=== PATIENT | female | born 1970 | race Caucasian/White ===

== ENCOUNTER 2016-12-10 17:16 | Emergency (ER) | payer OTHER, SELFPAY ==
[2016-12-10 17:35] VITALS: O2SAT 98
--- NOTE | 2016-12-10 17:57 | RAD ---
EXAM: Chest,2 Views CLINICAL INDICATION: 46-year-old female with cough. TECHNIQUE: Two-view, PA and lateral projections of the chest were obtained. COMPARISON: 09/15/2010. FINDINGS: Unremarkable cardiac and mediastinal silhouette. Heart size is normal. Lungs are clear without focal opacity, pneumothorax or pleural effusions. The visualized bones are within normal limits. IMPRESSION: No acute cardiopulmonary abnormalities. Electronically signed by: Tania Rowland MD 12/10/2016 5:56 PM HOME HEALTH CLINICAL SUPERVISOR
--- NOTE | 2016-12-10 18:57 | ED.PDOC ---
History of Present Illness - General Chief Complaint: General Stated Complaint: Increased difficulty breathing x several weeks Time Seen by Provider: 12/10/16 17:30 Source: patient, RN notes reviewed, Vital Signs reviewed Exam Limitations: no limitations - History of Present Illness Initial Comments: Patient is a 46 y/o female with a history of asthma that has had a cough for about a month. She has been increasing her use of her inhaler, however over the past two days, it has not been working well at all. She has a continuous cough (although I have not heard her cough yet), and shortness of breath. She has had chills and myalgias. Timing/Duration: getting worse, other - 1 month Severity: moderate, severe Improving Factors: nothing Worsening Factors: movement Associated Symptoms: cough, malaise, nausea/vomiting, shortness of breath Allergies/Adverse Reactions: Allergies Penicillins Allergy (Verified 06/09/15 08:13) Home Medications: Ambulatory Orders Albuterol Sulfate [Proair Hfa] 2 puff INH Q6H PRN #1 12/10/16 Fluoxetine HCl [Prozac] 40 mg PO DAILY 12/10/16 Methylprednisolone [Medrol Dose Geovany] 4 mg PO DAILY #1 pack 12/10/16 Review of Systems - Review of Systems Constitutional: States: chills EENTM: States: ear pain, nose congestion, throat pain Respiratory: States: cough, short of breath Cardiology: States: no symptoms reported Gastrointestinal/Abdominal: States: nausea Genitourinary: States: no symptoms reported Musculoskeletal: States: muscle pain. Denies: joint pain Skin: States: no symptoms reported Neurological: States: headache, weakness. Denies: numbness Endocrine: States: no symptoms reported Hematologic/Lymphatic: States: no symptoms reported Past Medical History (General) - Patient Medical History Hx Seizures: No Hx Stroke: No Hx Dementia: No Hx Asthma: Yes Hx of COPD: No Hx Cardiac Disorders: No Hx Congestive Heart Failure: No Hx Pacemaker: No Hx Hypertension: Yes Hx Thyroid Disease: No Hx Diabetes: No Hx Gastroesophageal Reflux: No Hx Renal Disease: No Hx Cancer: No Hx of HIV: No Hx Hepatitis C: No Hx MRSA: No MRSA Source:: Wound - Vaccination History Hx Tetanus, Diphtheria Vaccination: Yes Hx Influenza Vaccination: No Hx Pneumococcal Vaccination: Yes Immunizations Up to Date: Yes - Social History Hx Tobacco Use: No Hx Chewing Tobacco Use: No Hx Alcohol Use: No Hx Substance Use: No Hx Substance Use Treatment: No Hx Depression: No Feels Threatened In Home Enviroment: No Feels Threatened In a Relationship: No Hx Physical Abuse: No Hx Emotional Abuse: No Hx Suspected Abuse: No - Female History Patient is a Female of Child Bearing Age (10 -59 yrs old): Yes Patient : No Family Medical History - Family History Mother Living Status: Hx Family;Other: Malini Gehrig's disease Father Living Status: Hx Family Cancer: Yes - Prostate Physical Exam - Physical Exam General Appearance: Alert, No apparent distress Eye Exam: bilateral normal Ears, Nose, Throat: hearing grossly normal, normal ENT inspection Neck: non-tender Respiratory: lungs clear, normal breath sounds, no respiratory distress, no accessory muscle use Cardiovascular/Chest: regular rate, rhythm, no edema, no gallop, no murmur Gastrointestinal/Abdominal: normal bowel sounds, soft, no organomegaly, tenderness - epigastric Extremity: normal range of motion, normal inspection Neurologic: alert, normal mood/affect, oriented x 3 Skin Exam: normal color, warm/dry Progress - Results/Orders Results/Orders: 12/10/16 17:30 Temperature 98.8 F Pulse Rate [L 73 Arm] Respiratory 18 Rate Blood Pressure 124/85 [L Arm] O2 Sat by Pulse 98 Oximetry 12/10/16 17:50 STREP A SCREEN CULTURE Stat Rapid strep - NEG Influenza A and B - NEG - EKG/XRAY/CT XRAY: chest - NML CT Ordered: No CT Interpretation Call Back: No Departure - Departure Clinical Impression: Asthma with acute exacerbation in adult Time of Disposition: 19:00 Disposition: Discharge to Home or Self Care Condition: Fair Departure Forms: ED Discharge - Pt. Copy, Patient Portal Self Enrollment Instructions: Tips for Controlling Your Asthma, DI for Asthma -- Adult, Asthma -- Adult Diet: resume usual diet Referrals: RADHA RONQUILLO [Primary Care Provider] - 1-2 Weeks Prescriptions: Methylprednisolone [Medrol Dose Geovany] 4 mg PO DAILY #1 pack Albuterol Sulfate [Proair Hfa] 2 puff INH Q6H PRN #1 PRN Reason: Difficulty Breathing Home Medications: Ambulatory Orders Albuterol Sulfate [Proair Hfa] 2 puff INH Q6H PRN #1 12/10/16 Fluoxetine HCl [Prozac] 40 mg PO DAILY 12/10/16 Methylprednisolone [Medrol Dose Geovany] 4 mg PO DAILY #1 pack 12/10/16
[2016-12-10] MEDS: methylPREDNISolone SODIUM SUC 125 MG/2 ML VIAL IM ONE (19:01)
[2016-12-10 19:54] VITALS: BP 121/74; TEMP 97.9
--- NOTE | 2016-12-22 00:14 | RAD ---
EXAM: Chest,2 Views CLINICAL INDICATION: 46-year-old female with cough. TECHNIQUE: Two-view, PA and lateral projections of the chest were obtained. COMPARISON: 09/15/2010. FINDINGS: Unremarkable cardiac and mediastinal silhouette. Heart size is normal. Lungs are clear without focal opacity, pneumothorax or pleural effusions. The visualized bones are within normal limits. IMPRESSION: No acute cardiopulmonary abnormalities. Electronically signed by: Tania Rowland MD 12/10/2016 5:56 PM DIRECT SERVICE PROFESSIONAL
== END 2016-12-10 19:30 | disposition home or self-care (01) ==
LOC: ER 17:16
DX: J45.901 Unspecified asthma with (acute) exacerbation (principal); I10 Essential (primary) hypertension; Z88.0 Allergy status to penicillin; Z79.899 Other long term (current) drug therapy

== ENCOUNTER → 2017-02-04 | Outpatient (CLI) | payer SELFPAY ==
--- NOTE | 2017-02-05 14:12 | RAD ---
EXAM DESCRIPTION: Knee,Left 2 or More Views CLINICAL HISTORY: 46 years, Female, PAIN IN LEFT KNEE COMPARISON: None TECHNIQUE: Three views of the left knee FINDINGS: The knee is normally aligned and mineralized. No fracture or deformity or destructive process is seen. No effusion or mass or foreign body is noted. Mild degenerative changes are evident. IMPRESSION: 1. Normal left knee. Electronically signed by: Juni Laura MD 02/05/2017 2:12 PM CDT
== END ==
LOC: RAD 14:53
PROVIDERS: ATTEND Nurse Practitioner Family
DX: M25.562 Pain in left knee (principal)

== ENCOUNTER 2017-04-30 15:42 | Emergency (ER) | payer SELFPAY ==
[2017-04-30 16:17] VITALS: TEMP 98.2
[2017-04-30] MEDS ORDERED: traMADol 37.5MG/APAP 325MG 1 EA TAB PO ONE (16:22)
[2017-04-30] MEDS ORDERED: IBUPROFEN 200 MG TAB PO ONE (16:22)
--- NOTE | 2017-04-30 16:25 | ED.PDOC ---
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 PT REPORTS THAT SHE APPLIED ICE AND SOAKED FOOT IN COLD WATER WITH NO IMPROVEMENT IN SYMPTOMS. PT DENIES TAKING OTC MEDS FOR PAIN. REPORTS FOOT PAIN IN THE PAST BUT NOT BAD TODAYS PAIN. Timing/Duration: 24 hours Severity: severe Improving Factors: immobilization Worsening Factors: cold therapy, movement Associated Symptoms: denies symptoms Allergies/Adverse Reactions: Allergies Penicillins Allergy (Verified 04/30/17 16:13) Rash Home Medications: Ambulatory Orders Albuterol Sulfate [Proair Hfa] 2 puff INH Q6H PRN #1 12/10/16 Fluoxetine HCl [Prozac] 40 mg PO DAILY 12/10/16 Ibuprofen 800 mg PO Q8HR PRN #30 tab 04/30/17 Tramadol-Acetaminophen [Ultracet] 1 - 2 tab PO Q6HR PRN #30 tab 04/30/17 Review of Systems - Review of Systems Constitutional: Denies: chills, fever Respiratory: Denies: cough, short of breath Cardiology: Denies: chest pain, palpitations Musculoskeletal: Denies: joint pain, joint swelling Skin: Denies: change in color, lesions Past Medical History (General) - Patient Medical History Hx Seizures: No Hx Stroke: No Hx Dementia: No Hx Asthma: Yes Hx of COPD: No Hx Cardiac Disorders: No Hx Congestive Heart Failure: No Hx Pacemaker: No Hx Hypertension: Yes - Pt reports she has HTN, but does not take medication because of cost Hx Thyroid Disease: No Hx Diabetes: No Hx Gastroesophageal Reflux: No Hx Renal Disease: No Hx Cancer: Yes - leukemia Hx of HIV: No Hx Hepatitis C: No Hx MRSA: No MRSA Source:: Wound Surgical History: no surgical history - Vaccination History Hx Tetanus, Diphtheria Vaccination: Yes Hx Influenza Vaccination: No Hx Pneumococcal Vaccination: No - Social History Hx Tobacco Use: No Hx Chewing Tobacco Use: No Hx Alcohol Use: No Hx Substance Use: No Hx Substance Use Treatment: No Hx Depression: No Hx Physical Abuse: No Hx Emotional Abuse: No Hx Suspected Abuse: No - Female History Patient is a Female of Child Bearing Age (10 -59 yrs old): Yes Patient : No Family Medical History - Family History Mother Living Status: Hx Family;Other: Malini Gehrig's disease Father Living Status: Hx Family Cancer: Yes - Prostate Physical Exam - Physical Exam General Appearance: Alert, Obvious distress Extremity: normal range of motion, normal inspection, other - TENDERNESS TO THE HEEL OF FOOT, NO PUNCTURE WOUNDS OR LESIONS NOTED, MILD ERYTHEMA TO THE HEEL REGION. Neurologic: no motor/sensory deficits, alert, normal mood/affect Skin Exam: normal color, warm/dry Progress - Progress Progress: 04/30/17 17:01 XRAY RESULTS DISCUSSED WITH PATIENT. NO FB OR HEEL SPUR ON XRAY. I FEEL THAT SYMPTOMS MAY BE DUE TO PLANTAR FASCIITIS. WILL RECOMMEND NSAID THERAPY, ALONG WITH OTC HEEL CUSHIONS FOR COMFORT. - EKG/XRAY/CT XRAY: CALCANEAL- NORMAL PER RAD Departure - Departure Clinical Impression: Plantar fasciitis of left foot Time of Disposition: 17:03 Disposition: Discharge to Home or Self Care Condition: Good Departure Forms: ED Discharge - Pt. Copy, Patient Portal Self Enrollment Instructions: DI for Plantar Fasciitis Diet: resume usual diet Activity: increase activity as tolerated, walking as tolerated Referrals: RADHA RONQUILLO [Primary Care Provider] - 1-2 Weeks Prescriptions: Tramadol-Acetaminophen [Ultracet] 1 - 2 tab PO Q6HR PRN #30 tab PRN Reason: Pain Ibuprofen 800 mg PO Q8HR PRN #30 tab PRN Reason: Pain Home Medications: Ambulatory Orders Albuterol Sulfate [Proair Hfa] 2 puff INH Q6H PRN #1 12/10/16 Fluoxetine HCl [Prozac] 40 mg PO DAILY 12/10/16 Ibuprofen 800 mg PO Q8HR PRN #30 tab 04/30/17 Tramadol-Acetaminophen [Ultracet] 1 - 2 tab PO Q6HR PRN #30 tab 04/30/17
--- NOTE | 2017-04-30 16:43 | RAD ---
EXAM DESCRIPTION: Calcaneous,Left CLINICAL HISTORY: SEVERE LEFT HEEL PAIN COMPARISON: None. TECHNIQUE: 2 views left FINDINGS: I see no bone joint or soft tissue abnormality. IMPRESSION: Normal left calcaneus Electronically signed by: Gideon Alfaro MD 04/30/2017 4:42 PM CDT
[2017-04-30 17:19] VITALS: BP 137/102; O2SAT 98
== END 2017-04-30 17:15 | disposition home or self-care (01) ==
LOC: ER 15:42
DX: M72.2 Plantar fascial fibromatosis (principal); I10 Essential (primary) hypertension; Z88.0 Allergy status to penicillin; J45.909 Unspecified asthma, uncomplicated; Z85.6 Personal history of leukemia; Z79.899 Other long term (current) drug therapy

== ENCOUNTER 2017-06-17 16:23 | Emergency (ER) | payer SELFPAY ==
--- NOTE | 2017-06-17 16:33 | ED.PDOC ---
History of Present Illness - General Time Seen by Provider: 06/17/17 16:32 Source: patient Exam Limitations: no limitations - History of Present Illness Comments: Kalee Mcmanus 46 y/o female with long standing history of asthma stated that she had on and off no productive cough for the last 3 months no fever or chills, no SOB but hurts to cough on her muscles.Had been using albuterol mdi Timing/Duration: other - see hpi Cough Quality/Degree: dry cough Possible Cause: allergen exposure, smoke exposure Improving Factors: nothing Worsening Factors: nothing Associated Symptoms: denies symptoms Respiratory Risk Factors: exposure to allergen, pollen, other - asthma Allergies/Adverse Reactions: Allergies Penicillins Allergy (Verified 06/17/17 16:49) Rash Home Medications: Ambulatory Orders Albuterol Sulfate [Proair Hfa] 2 puff INH Q6H PRN #1 12/10/16 Fluoxetine HCl [Prozac] 40 mg PO DAILY 12/10/16 Ibuprofen 800 mg PO Q8HR PRN #30 tab 04/30/17 Tramadol-Acetaminophen [Ultracet] 1 - 2 tab PO Q6HR PRN #30 tab 04/30/17 Albuterol Sulfate Nebs [Proventil Nebs] 3 ml NEB Q4HR PRN #30 vial 06/17/17 Montelukast [Singulair] 10 mg PO BEDTIME #30 tab 06/17/17 Prednisone 10 mg PO BID #14 josh 06/17/17 predniSONE 10 mg PO BID #14 tab 06/17/17 Review of Systems - Review of Systems Constitutional: States: no symptoms reported EENTM: States: no symptoms reported Respiratory: States: see HPI Cardiology: States: no symptoms reported Gastrointestinal/Abdominal: States: no symptoms reported Genitourinary: States: no symptoms reported Past Medical History (General) - Patient Medical History Hx Seizures: No Hx Stroke: No Hx Dementia: No Hx Asthma: Yes Hx of COPD: No Hx Cardiac Disorders: No Hx Congestive Heart Failure: No Hx Pacemaker: No Hx Hypertension: Yes - Pt reports she has HTN, but does not take medication because of cost Hx Thyroid Disease: No Hx Diabetes: No Hx Gastroesophageal Reflux: No Hx Renal Disease: No Hx Cancer: Yes - leukemia Hx of HIV: No Hx Hepatitis C: No Hx MRSA: No MRSA Source:: Wound Surgical History: no surgical history - Vaccination History Hx Tetanus, Diphtheria Vaccination: Yes Hx Influenza Vaccination: No Hx Pneumococcal Vaccination: No - Social History Hx Tobacco Use: No Hx Chewing Tobacco Use: No Hx Alcohol Use: No Hx Substance Use: No Hx Substance Use Treatment: No Hx Depression: No Hx Physical Abuse: No Hx Emotional Abuse: No Hx Suspected Abuse: No - Female History Hx Last Menstrual Period: 06/17/17 Patient : No Family Medical History - Family History Mother Living Status: Hx Family Asthma: Yes - mother Hx Family Cancer: Yes - dad-prostate Hx Family;Other: Malini Gehrig's disease Father Living Status: Hx Family Cancer: Yes - Prostate Physical Exam - Physical Exam General Appearance: Alert, Comfortable, No apparent distress Eye Exam: bilateral normal ENT Exam: normal ENT inspection, hearing grossly normal, pharynx normal Neck: full range of motion, supple Respiratory: chest non-tender, no respiratory distress, no accessory muscle use , rhonchi Cardiovascular/Chest: normal peripheral pulses, regular rate, rhythm, no murmur Gastrointestinal/Abdominal: normal bowel sounds, non tender, soft, no organomegaly Extremity: non-tender, normal inspection, no pedal edema, no calf tenderness Neurologic: alert, normal mood/affect, oriented x 3 Skin Exam: normal color, warm/dry Lymphatic: no adenopathy Progress - Progress Progress: 06/17/17 16:48 Vital Signs - 8 hr 06/17/17 16:30 Temperature 98.4 F Pulse Rate [ 80 pulse ox] Respiratory 20 Rate Blood Pressure 147/98 [Right Arm] O2 Sat by Pulse 99 Oximetry - EKG/XRAY/CT XRAY: chest - no acute abnormalities noted Departure - Departure Clinical Impression: Asthma with acute exacerbation in adult Qualifiers: Asthma severity: unspecified severity Qualified Code(s): J45.901 - Unspecified asthma with (acute) exacerbation Time of Disposition: 18:05 Disposition: Discharge to Home or Self Care Condition: Good Instructions: DI for Asthma -- Adult, Asthma -- Adult, Tips for Controlling Your Asthma Referrals: RADHA RONQUILLO [Primary Care Provider] - 1-2 Weeks Prescriptions: Albuterol Sulfate Nebs [Proventil Nebs] 3 ml NEB Q4HR PRN #30 vial PRN Reason: Wheezing Montelukast [Singulair] 10 mg PO BEDTIME #30 tab Prednisone 10 mg PO BID #14 josh predniSONE 10 mg PO BID #14 tab Home Medications: Ambulatory Orders Albuterol Sulfate [Proair Hfa] 2 puff INH Q6H PRN #1 12/10/16 Fluoxetine HCl [Prozac] 40 mg PO DAILY 12/10/16 Ibuprofen 800 mg PO Q8HR PRN #30 tab 04/30/17 Tramadol-Acetaminophen [Ultracet] 1 - 2 tab PO Q6HR PRN #30 tab 04/30/17 Albuterol Sulfate Nebs [Proventil Nebs] 3 ml NEB Q4HR PRN #30 vial 06/17/17 Montelukast [Singulair] 10 mg PO BEDTIME #30 tab 06/17/17 Prednisone 10 mg PO BID #14 josh 06/17/17 predniSONE 10 mg PO BID #14 tab 06/17/17 Additional Instructions: FOLLOW UP WITH PRIMARY 06/18/2017
[2017-06-17] MEDS ORDERED: predniSONE 10 MG TAB PO ONE (16:49)
[2017-06-17] MEDS ORDERED: IPRATROPIUM/ALBUTEROL 3 ML VIAL NEB ONE (16:50)
--- NOTE | 2017-06-17 17:36 | RAD ---
EXAM DESCRIPTION: Chest,2 Views CLINICAL HISTORY: 46 years Female cough COMPARISON: 12/10/2016 FINDINGS: The cardiomediastinal silhouette appears unremarkable. No consolidating infiltrates or pleural effusions. No pneumothorax. IMPRESSION: No acute abnormality is identified. Electronically signed by: Yue Mora 06/17/2017 5:34 PM CDT
[2017-06-17 18:50] VITALS: BP 131/77; TEMP 98.1; O2SAT 96
== END 2017-06-17 18:22 | disposition home or self-care (01) ==
LOC: ER 16:23
DX: J45.901 Unspecified asthma with (acute) exacerbation (principal); I10 Essential (primary) hypertension; Z85.6 Personal history of leukemia; Z88.0 Allergy status to penicillin; Z79.899 Other long term (current) drug therapy
CPT/HCPCS: 71020; 94640; J7512; J7620

== ENCOUNTER 2017-10-21 16:42 | Emergency (ER) | payer SELFPAY ==
[2017-10-21 21:13] VITALS: O2SAT 99
--- NOTE | 2017-10-21 22:20 | ED.PDOC ---
History of Present Illness - General Chief Complaint: Respiratory Problem Stated Complaint: sore throat x1 week, cough Time Seen by Provider: 10/21/17 22:18 Source: patient, RN notes reviewed, Vital Signs reviewed Additional Information: Pt reports 1 week of nasal congestion, sore throat, and now facial tenderness/ pressure. - History of Present Illness Timing/Duration: week - x1 Cough Quality/Degree: mild, dry cough Improving Factors: medication - Tylenol cold and flu Worsening Factors: nothing Associated Symptoms: fever/chills, headache, muscle aches, nasal congestion, nasal drainage, sinus infection, sore throat Respiratory Risk Factors: no cause identified Allergies/Adverse Reactions: Allergies Penicillins Allergy (Verified 06/17/17 16:49) Rash Home Medications: Ambulatory Orders Albuterol Sulfate [Proair Hfa] 2 puff INH Q6H PRN #1 12/10/16 Fluoxetine HCl [Prozac] 40 mg PO DAILY 12/10/16 Ibuprofen 800 mg PO Q8HR PRN #30 tab 04/30/17 Tramadol-Acetaminophen [Ultracet] 1 - 2 tab PO Q6HR PRN #30 tab 04/30/17 Albuterol Sulfate Nebs [Proventil Nebs] 3 ml NEB Q4HR PRN #30 vial 06/17/17 Montelukast [Singulair] 10 mg PO BEDTIME #30 tab 06/17/17 Prednisone 10 mg PO BID #14 josh 06/17/17 predniSONE 10 mg PO BID #14 tab 06/17/17 Doxycycline (Monohydrate) [Doxycycline Monohydrate] 100 mg PO BID 7 Days #14 cap 10/21/17 Fluticasone Prop 0.05% Nasal [Flonase Nasal [place]] 2 spray BNAS DAILY 7 Days #1 bottle 10/21/17 Review of Systems - Review of Systems Constitutional: States: see HPI, fever, malaise, weakness EENTM: States: see HPI, nose congestion, throat pain Respiratory: States: see HPI, cough Cardiology: States: no symptoms reported Gastrointestinal/Abdominal: States: no symptoms reported Genitourinary: States: no symptoms reported Musculoskeletal: States: no symptoms reported Skin: States: no symptoms reported Neurological: States: no symptoms reported Endocrine: States: no symptoms reported Hematologic/Lymphatic: States: no symptoms reported Past Medical History (General) - Patient Medical History Hx Seizures: No Hx Stroke: No Hx Dementia: No Hx Asthma: Yes Hx of COPD: No Hx Cardiac Disorders: No Hx Congestive Heart Failure: No Hx Pacemaker: No Hx Hypertension: Yes - Pt reports she has HTN, but does not take medication because of cost Hx Thyroid Disease: No Hx Diabetes: No Hx Gastroesophageal Reflux: Yes Hx Renal Disease: No Hx Cancer: Yes - leukemia Hx of HIV: No Hx Hepatitis C: No Hx MRSA: No MRSA Source:: Wound Surgical History: other - Vaccination History Hx Tetanus, Diphtheria Vaccination: Yes Hx Influenza Vaccination: No Hx Pneumococcal Vaccination: No - Social History Hx Tobacco Use: No Hx Chewing Tobacco Use: No Hx Alcohol Use: No Hx Substance Use: No Hx Substance Use Treatment: No Hx Depression: No Hx Physical Abuse: No Hx Emotional Abuse: No Hx Suspected Abuse: No - Female History Hx Last Menstrual Period: 06/17/17 Patient : No Family Medical History - Family History Mother Living Status: Hx Family Asthma: Yes - mother Hx Family Cancer: Yes - dad-prostate Hx Family;Other: Malini Gehrig's disease Father Living Status: Hx Family Cancer: Yes - Prostate Physical Exam - Physical Exam General Appearance: Alert Eye Exam: bilateral normal ENT Exam: nasal drainage - clear, pharyngeal erythema - mild with postnasal drip , other - Frontal and maxillary sinus tenderness Neck: non-tender, full range of motion, supple Respiratory: lungs clear, normal breath sounds, no respiratory distress, no accessory muscle use Cardiovascular/Chest: normal peripheral pulses, regular rate, rhythm, no edema Gastrointestinal/Abdominal: non tender, soft Extremity: normal range of motion, non-tender Neurologic: snow ranger II-XII nml as tested, no motor/sensory deficits, alert, normal mood/affect, oriented x 3 Skin Exam: normal color Progress - Progress Progress: 10/22/17 01:10 Signs and symptoms consistent with acute sinusitis. Given symptoms x 1 week, will treat with abx (Doxycycline 100 mg bid for 7 days) as well as a Rx for Flonase and acute treatment with Toradol 60 mg IM x 1. Pt stable for d/c home with strict return precautions. Departure - Departure Clinical Impression: Sinusitis Qualifiers: Sinusitis location: unspecified location Chronicity: acute Recurrence: non- recurrent Qualified Code(s): J01.90 - Acute sinusitis, unspecified Time of Disposition: 22:52 Disposition: Discharge to Home or Self Care Condition: Fair Departure Forms: ED Discharge - Pt. Copy, Patient Portal Self Enrollment Instructions: DI for Sinusitis Referrals: RADHA RONQUILLO [Primary Care Provider] - 1-2 Days Prescriptions: Doxycycline (Monohydrate) [Doxycycline Monohydrate] 100 mg PO BID 7 Days #14 cap Fluticasone Prop 0.05% Nasal [Flonase Nasal [place]] 2 spray BNAS DAILY 7 Days #1 bottle Home Medications: Ambulatory Orders Albuterol Sulfate [Proair Hfa] 2 puff INH Q6H PRN #1 12/10/16 Fluoxetine HCl [Prozac] 40 mg PO DAILY 12/10/16 Ibuprofen 800 mg PO Q8HR PRN #30 tab 04/30/17 Tramadol-Acetaminophen [Ultracet] 1 - 2 tab PO Q6HR PRN #30 tab 04/30/17 Albuterol Sulfate Nebs [Proventil Nebs] 3 ml NEB Q4HR PRN #30 vial 06/17/17 Montelukast [Singulair] 10 mg PO BEDTIME #30 tab 06/17/17 Prednisone 10 mg PO BID #14 josh 06/17/17 predniSONE 10 mg PO BID #14 tab 06/17/17 Doxycycline (Monohydrate) [Doxycycline Monohydrate] 100 mg PO BID 7 Days #14 cap 10/21/17 Fluticasone Prop 0.05% Nasal [Flonase Nasal [place]] 2 spray BNAS DAILY 7 Days #1 bottle 10/21/17 Additional Instructions: Take medicine as prescribed. Follow-up with Primary Care Provider if unimproved in 2 to 3 days. Return to ER if condition worsens. Stay well hydrated.
[2017-10-21] MEDS ORDERED: KETOROLAC TROMETHAMINE INJ 60 MG/2 ML VIAL IM ONE (22:27)
[2017-10-21] MEDS ORDERED: DOXYCYCLINE TAB (ER DISPENSE) 100 MG CAP PO ONE (22:27)
[2017-10-21] MEDS ORDERED: OXYMETAZOLINE NASAL SPRAY 15 ML BTTL BNAS PRN (22:55)
[2017-10-21 23:09] VITALS: BP 129/71; TEMP 98.7
[2017-10-22] MEDS ORDERED: FLUTICASONE PROP 0.05% NASAL 16 GM BTTL BNAS SCH (09:00)
== END 2017-10-21 23:09 | disposition home or self-care (01) ==
LOC: ER 16:42
DX: J01.90 Acute sinusitis, unspecified (principal); J45.909 Unspecified asthma, uncomplicated; I10 Essential (primary) hypertension; Z85.6 Personal history of leukemia; Z79.899 Other long term (current) drug therapy; Z88.0 Allergy status to penicillin; R05 Cough
CPT/HCPCS: 87070; 87502; 87651; J1885

== ENCOUNTER 2018-04-14 19:15 | Emergency (ER) | payer OTHER ==
--- NOTE | 2018-04-14 19:29 | ED.PDOC ---
History of Present Illness - General Chief Complaint: General Stated Complaint: pain left foot Time Seen by Provider: 04/14/18 19:28 Exam Limitations: no limitations - History of Present Illness Initial Comments: mari Mcmanus 47 y/o female stated that her left foot had been having sharp pains at the bottom of her left foot and recently for the last 3 weeks had on and off spasm/stiffness on her foot and noted blood pressure was elevated today.Denies headaches,chest pains,or leg stiffness. Occurred: other - see hpi Pain - Lower Extremity: moderate: Left Foot Method of Injury: unknown Improving Factors: rest Worsening Factors: movement Allergies/Adverse Reactions: Allergies Penicillins Allergy (Verified 04/14/18 19:30) Rash Home Medications: Ambulatory Orders Albuterol Sulfate [Proair Hfa] 2 puff INH Q6H PRN #1 12/10/16 Fluoxetine HCl [Prozac] 40 mg PO DAILY 12/10/16 Ibuprofen 800 mg PO Q8HR PRN #30 tab 04/30/17 Tramadol-Acetaminophen [Ultracet] 1 - 2 tab PO Q6HR PRN #30 tab 04/30/17 Albuterol Sulfate Nebs [Proventil Nebs] 3 ml NEB Q4HR PRN #30 vial 06/17/17 Montelukast [Singulair] 10 mg PO BEDTIME #30 tab 06/17/17 Prednisone 10 mg PO BID #14 josh 06/17/17 predniSONE 10 mg PO BID #14 tab 06/17/17 Doxycycline (Monohydrate) [Doxycycline Monohydrate] 100 mg PO BID 7 Days #14 cap 10/21/17 Fluticasone Prop 0.05% Nasal [Flonase Nasal [place]] 2 spray BNAS DAILY 7 Days #1 bottle 10/21/17 amLODIPine BESYLATE [Norvasc] 5 mg PO ACBK #30 tab 04/14/18 Review of Systems - Review of Systems Constitutional: States: no symptoms reported EENTM: States: no symptoms reported Respiratory: States: no symptoms reported Musculoskeletal: States: see HPI Neurological: States: no symptoms reported Past Medical History (General) - Patient Medical History Hx Seizures: No Hx Stroke: No Hx Dementia: No Hx Asthma: Yes Hx of COPD: No Hx Cardiac Disorders: No Hx Congestive Heart Failure: No Hx Pacemaker: No Hx Hypertension: Yes - Pt reports she has HTN, but does not take medication because of cost Hx Thyroid Disease: No Hx Diabetes: No Hx Gastroesophageal Reflux: Yes Hx Renal Disease: No Hx Cancer: Yes - leukemia Hx of HIV: No Hx Hepatitis C: No Hx MRSA: No MRSA Source:: Wound Surgical History: other - tubal - Vaccination History Hx Tetanus, Diphtheria Vaccination: Yes Hx Influenza Vaccination: No Hx Pneumococcal Vaccination: No - Social History Hx Tobacco Use: No Hx Chewing Tobacco Use: No Hx Alcohol Use: No Hx Substance Use: No Hx Substance Use Treatment: No Hx Depression: No Hx Physical Abuse: No Hx Emotional Abuse: No Hx Suspected Abuse: No - Female History Hx Last Menstrual Period: 06/17/17 Patient : No Family Medical History - Family History Mother Living Status: Hx Family Asthma: Yes - mother Hx Family Cancer: Yes - dad-prostate Hx Family;Other: Malini Gehrig's disease Father Living Status: Hx Family Cancer: Yes - Prostate Physical Exam - Physical Exam General Appearance: Alert, Comfortable, No apparent distress Eyes, Ears, Nose, Throat: normal ENT inspection, pharynx normal Neck: supple, normal inspection Cardiovascular/Respiratory: regular rate, rhythm, no M/R/G, normal peripheral pulses, normal breath sounds Gastrointestinal/Abdominal: non-tender Back: no CVA tenderness, no vertebral tenderness Leg: non-tender, no evidence of injury Knee: non-tender, no evidence of injury Ankle: non-tender, no evidence of injury Foot: normal inspection, non-tender, no evidence of injury, normal ROM Progress - Progress Progress: 04/14/18 19:55 Vital Signs - 8 hr 04/14/18 19:32 Temperature 98.5 F Pulse Rate [ 83 left] Respiratory 18 Rate Blood Pressure 158/111 [left] O2 Sat by Pulse 100 Oximetry - Results/Orders Results/Orders: 04/14/18 19:55 URINE DRUG SCREEN, 7 ASSAY Stat URINALYSIS Stat Laboratory Results - last 24 hr 04/14/18 04/14/18 19:52 19:52 WBC 13.0 H RBC 4.71 Hgb 12.1 Hct 38.0 MCV 80.8 L MCH 25.6 L MCHC 31.7 L RDW 17.8 H Plt Count 381 MPV 7.8 Absolute Neuts (auto) 9.10 H Absolute Lymphs (auto) 3.00 Absolute Monos (auto) 0.70 Absolute Eos (auto) 0.20 Absolute Basos (auto) 0.10 Neutrophils % 70.0 Lymphocytes % 23.3 Monocytes % 5.1 Eosinophils % 1.2 Basophils % 0.4 Sodium 141 Potassium 3.3 L Chloride 108 Carbon Dioxide 27 Anion Gap 9.3 L BUN 10 Creatinine 0.67 BUN/Creatinine Ratio 14.9 Random Glucose 132 H Serum Osmolality 282.2 Uric Acid 3.5 Calcium 9.2 Total Bilirubin 0.6 AST 22 ALT 24 Alkaline Phosphatase 57 Serum Total Protein 7.7 Albumin 4.4 Globulin 3.3 Albumin/Globulin Ratio 1.3 - EKG/XRAY/CT XRAY: left foot-no acute abnormalities Departure - Departure Clinical Impression: Chronic foot pain Qualifiers: Laterality: left Qualified Code(s): M79.672 - Pain in left foot; G89.29 - Other chronic pain High blood pressure Qualifiers: Hypertension type: unspecified Qualified Code(s): I10 - Essential (primary) hypertension Time of Disposition: 20:41 Disposition: Discharge to Home or Self Care Condition: Fair Departure Forms: ED Discharge - Pt. Copy, Patient Portal Self Enrollment Instructions: High Potassium Diet, Hypokalemia Referrals: RADHA RONQUILLO [Primary Care Provider] - 1-2 Weeks Prescriptions: amLODIPine BESYLATE [Norvasc] 5 mg PO ACBK #30 tab Home Medications: Ambulatory Orders Albuterol Sulfate [Proair Hfa] 2 puff INH Q6H PRN #1 12/10/16 Fluoxetine HCl [Prozac] 40 mg PO DAILY 12/10/16 Ibuprofen 800 mg PO Q8HR PRN #30 tab 04/30/17 Tramadol-Acetaminophen [Ultracet] 1 - 2 tab PO Q6HR PRN #30 tab 04/30/17 Albuterol Sulfate Nebs [Proventil Nebs] 3 ml NEB Q4HR PRN #30 vial 06/17/17 Montelukast [Singulair] 10 mg PO BEDTIME #30 tab 06/17/17 Prednisone 10 mg PO BID #14 josh 06/17/17 predniSONE 10 mg PO BID #14 tab 06/17/17 Doxycycline (Monohydrate) [Doxycycline Monohydrate] 100 mg PO BID 7 Days #14 cap 10/21/17 Fluticasone Prop 0.05% Nasal [Flonase Nasal [place]] 2 spray BNAS DAILY 7 Days #1 bottle 10/21/17 amLODIPine BESYLATE [Norvasc] 5 mg PO ACBK #30 tab 04/14/18 Additional Instructions: Follow up with primary Md 19 April 2018;Continue with foot exercise as directed
--- NOTE | 2018-04-14 19:59 | RAD ---
EXAM DESCRIPTION: Foot,Left 2 Views CLINICAL HISTORY: pain 04/30/2017 COMPARISON: None FINDINGS: 2 view(s) submitted. No fracture or dislocation is identified. Bone marrow attenuation is unremarkable. No radiopaque foreign body is identified. IMPRESSION: No acute fracture or dislocation. Electronically signed by: Greg Chiu 04/14/2018 7:58 PM CDT
[2018-04-14] MEDS: cloNIDine HCL 0.1 MG TAB PO ONE (20:05)
[2018-04-14 21:16] VITALS: O2SAT 96
[2018-04-14 22:11] VITALS: BP 119/79; TEMP 98.7
== END 2018-04-14 22:10 | disposition home or self-care (01) ==
LOC: ER 19:15
DX: M79.672 Pain in left foot (principal); G89.29 Other chronic pain; I10 Essential (primary) hypertension; J45.909 Unspecified asthma, uncomplicated; K21.9 Gastro-esophageal reflux disease without esophagitis; Z79.899 Other long term (current) drug therapy; Z85.6 Personal history of leukemia; Z88.0 Allergy status to penicillin

== ENCOUNTER 2018-05-16 10:14 | Emergency (ER) | payer OTHER ==
[2018-05-16] MEDS ORDERED: SILVER SULFADIAZINE 1 % 25 GM TUBE TOP ONE ×2 (10:36→10:38)
[2018-05-16] MEDS ORDERED: TETANUS,DIPHTHERIA,PERTUSSIS 1 EA SYG IM ONE (10:39)
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
[2018-05-17 17:46] VITALS: BP 138/84; TEMP 98.9; O2SAT 97
== END 2018-05-16 11:16 | disposition home or self-care (01) ==
LOC: ER 10:14
DX: T25.232A Burn of second degree of left toe(s) (nail), initial encounter (principal); J45.909 Unspecified asthma, uncomplicated; I10 Essential (primary) hypertension; K21.9 Gastro-esophageal reflux disease without esophagitis; Z23 Encounter for immunization; Z85.6 Personal history of leukemia; Z79.899 Other long term (current) drug therapy; Z88.0 Allergy status to penicillin; Y92.009 Unspecified place in unspecified non-institutional (private) residence as the place of occurrence of the external cause; Y93.G3 Activity, cooking and baking; X10.2XXA Contact with fats and cooking oils, initial encounter

== ENCOUNTER 2018-05-19 14:47 | Emergency (ER) | payer OTHER ==
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
[2018-05-19 16:15] VITALS: BP 121/67; TEMP 98.5; O2SAT 98
== END 2018-05-19 15:50 | disposition home or self-care (01) ==
LOC: ER 14:47
DX: T25.232D Burn of second degree of left toe(s) (nail), subsequent encounter (principal); T79.8XXD Other early complications of trauma, subsequent encounter; L03.032 Cellulitis of left toe; I10 Essential (primary) hypertension; C95.90 Leukemia, unspecified not having achieved remission; Z88.0 Allergy status to penicillin; Z79.899 Other long term (current) drug therapy; X10.2XXD Contact with fats and cooking oils, subsequent encounter

== ENCOUNTER 2018-05-23 18:09 | Emergency (ER) | payer SELFPAY ==
[2018-05-23 18:23] VITALS: BP 150/81; TEMP 98; O2SAT 98
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
[2018-05-23] MEDS ORDERED: SILVER SULFADIAZINE 1 % 25 GM TUBE TOP ONE (19:20)
== END 2018-05-23 19:41 | disposition home or self-care (01) ==
LOC: ER 18:09
DX: T25.232D Burn of second degree of left toe(s) (nail), subsequent encounter (principal); I10 Essential (primary) hypertension; J45.909 Unspecified asthma, uncomplicated; Z85.6 Personal history of leukemia; Z79.899 Other long term (current) drug therapy; X08.8XXD Exposure to other specified smoke, fire and flames, subsequent encounter

== ENCOUNTER 2018-08-15 11:54 | Emergency (ER) | payer SELFPAY ==
[2018-08-15 12:11] VITALS: TEMP 97.8
[2018-08-15] MEDS ORDERED: SODIUM CHLORIDE 0.9% 1000ML 1,000 ML IVS ONE (12:44)
[2018-08-15] MEDS ORDERED: ALUM & MAG HYDROX-SIMETHICONE 30 ML, LIDOCAINE VISCOUS 2% 15 ML PO ONE ×2 (12:44)
[2018-08-15] MEDS ORDERED: ONDANSETRON ODT 8 MG TAB SL ONE (12:44)
[2018-08-15] MEDS ORDERED: ALUM & MAG HYDROX-SIMETHICONE 30 ML UD ONE (12:52)
[2018-08-15] MEDS ORDERED: LIDOCAINE HCL 2% (MOUTH-THROAT) 15 ML UD ONE (12:52)
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
[2018-08-15] MEDS ORDERED: PROMETHAZINE HCL 25 MG TAB PO ONE (14:51)
[2018-08-15 15:21] VITALS: BP 104/65; O2SAT 98
== END 2018-08-15 15:20 | disposition home or self-care (01) ==
LOC: ER 11:54
DX: K52.9 Noninfective gastroenteritis and colitis, unspecified (principal); I10 Essential (primary) hypertension; K21.9 Gastro-esophageal reflux disease without esophagitis; Z85.6 Personal history of leukemia; Z88.0 Allergy status to penicillin
CPT/HCPCS: 36415; 80053; 81001; 81025; 82150; 83690; 85025; J7030; Q0169

== ENCOUNTER 2018-11-09 04:18 | Emergency (ER) | payer SELFPAY ==
[2018-11-09 04:34] VITALS: TEMP 99
--- NOTE | 2018-11-09 04:45 | ED.PDOC ---
History of Present Illness - General Chief Complaint: Respiratory Problem Stated Complaint: congestion, drainage,cough Time Seen by Provider: 11/09/18 04:41 Source: patient Exam Limitations: no limitations - History of Present Illness Comments: URI sx's x 5 days with sorethroat and cough Timing/Duration: getting worse Cough Quality/Degree: moderate Possible Cause: occasional episodes Improving Factors: nothing Worsening Factors: nothing Associated Symptoms: cough, dizziness, headache, nasal congestion, shortness of breath, sore throat Allergies/Adverse Reactions: Allergies Penicillins Allergy (Verified 05/23/18 18:23) Rash Home Medications: Ambulatory Orders Cetirizine HCl 10 mg PO Q24HR #10 chw 11/09/18 Indomethacin 50 mg PO Q8HR PRN #20 cap 11/09/18 Review of Systems - Review of Systems Constitutional: States: chills. Denies: fever EENTM: States: nose congestion, throat pain Respiratory: States: cough, short of breath, wheezing Cardiology: States: no symptoms reported Gastrointestinal/Abdominal: Denies: diarrhea, nausea, vomiting Genitourinary: States: no symptoms reported Musculoskeletal: States: muscle pain Skin: States: no symptoms reported Neurological: States: headache Endocrine: States: no symptoms reported Hematologic/Lymphatic: States: no symptoms reported Past Medical History (General) - Patient Medical History Hx Seizures: No Hx Stroke: No Hx Dementia: No Hx Asthma: Yes - seasonal allergies Hx of COPD: No Hx Cardiac Disorders: No Hx Congestive Heart Failure: No Hx Pacemaker: No Hx Hypertension: Yes Hx Thyroid Disease: No Hx Diabetes: No Hx Gastroesophageal Reflux: Yes Hx Renal Disease: No Hx Cancer: Yes - leukemia Hx of HIV: No Hx Hepatitis C: No Hx MRSA: No MRSA Source:: Wound - Vaccination History Hx Tetanus, Diphtheria Vaccination: Yes Hx Influenza Vaccination: No Hx Pneumococcal Vaccination: No - Social History Hx Tobacco Use: No Hx Chewing Tobacco Use: No Hx Alcohol Use: No Hx Substance Use: No Hx Substance Use Treatment: No Hx Depression: Yes Hx Physical Abuse: No Hx Emotional Abuse: No Hx Suspected Abuse: No - Female History Hx Last Menstrual Period: 08/14/18 Patient : No Family Medical History - Family History Mother Living Status: Hx Family Asthma: Yes - mother Hx Family Cancer: Yes - dad-prostate Hx Family;Other: Malini Gehrig's disease Father Family History: Unknown Living Status: Hx Family Cancer: Yes - Prostate Physical Exam - Physical Exam General Appearance: Alert, Obvious distress Eye Exam: bilateral normal ENT Exam: TMs normal, pharynx normal Neck: lymphadenopathy (R), lymphadenopathy (L) Respiratory: no respiratory distress, rhonchi Cardiovascular/Chest: normal peripheral pulses, regular rate, rhythm Gastrointestinal/Abdominal: normal bowel sounds, non tender, soft Extremity: no pedal edema Neurologic: alert, normal mood/affect, oriented x 3 Skin Exam: normal color, warm/dry Departure - Departure Clinical Impression: Upper respiratory infection Qualifiers: URI type: unspecified viral URI Qualified Code(s): J06.9 - Acute upper respiratory infection, unspecified Disposition: Discharge to Home or Self Care Departure Forms: ED Discharge - Pt. Copy, Patient Portal Self Enrollment Referrals: RADHA RONQUILLO [Primary Care Provider] - 1-2 Weeks Prescriptions: Indomethacin 50 mg PO Q8HR PRN #20 cap PRN Reason: Moderate To Severe Pain Cetirizine HCl 10 mg PO Q24HR #10 chw Home Medications: Ambulatory Orders Cetirizine HCl 10 mg PO Q24HR #10 chw 11/09/18 Indomethacin 50 mg PO Q8HR PRN #20 cap 11/09/18
[2018-11-09 05:22] VITALS: BP 143/79; O2SAT 98
[2018-11-09] MEDS: KETOROLAC TROMETHAMINE INJ 60 MG/2 ML VIAL IM ONE (05:37)
== END 2018-11-09 05:54 | disposition home or self-care (01) ==
LOC: ER 04:18
DX: J06.9 Acute upper respiratory infection, unspecified (principal); F32.9 Major depressive disorder, single episode, unspecified; J45.909 Unspecified asthma, uncomplicated; I10 Essential (primary) hypertension; K21.9 Gastro-esophageal reflux disease without esophagitis; Z85.6 Personal history of leukemia; Z88.0 Allergy status to penicillin
CPT/HCPCS: 87070; 87502; 87880; J1885

== ENCOUNTER 2018-11-15 09:42 | Emergency (ER) | payer SELFPAY ==
[2018-11-15 09:50] VITALS: TEMP 96.6; O2SAT 99
--- NOTE | 2018-11-15 10:17 | RAD ---
Study: Frontal and Lateral Views of the Chest. Indication: hemoptysis Comparison: June 17, 2017 Impression: Heart size upper limits of normal. Lungs clear. No acute osseous abnormality. Electronically signed by: Chavo Covarrubias MD 11/15/2018 10:16 AM [facility]
[2018-11-15] MEDS ORDERED: methylPREDNISolone SODIUM SUC 125 MG/2 ML VIAL IM ONE (10:32)
[2018-11-15 10:52] VITALS: BP 144/94
--- NOTE | 2018-11-15 11:00 | ED.PDOC ---
History of Present Illness - General Chief Complaint: Respiratory Problem Stated Complaint: COUGH Time Seen by Provider: 11/15/18 09:55 Source: patient Exam Limitations: no limitations - History of Present Illness Initial Comments: Patient presents with a cough for one week. It has become productive of green and red sputum in the last two days. She has mild intermittent asthma that is well controlled but over the past few days, she has had to use her nebulizer several times per day. No fever. She says that steroids have worked well for this in the past. No other complaints. Denies dyspnea. Timing/Duration: 1 week Severity: moderate Improving Factors: nothing Worsening Factors: nothing Associated Symptoms: denies symptoms Allergies/Adverse Reactions: Allergies Penicillins Allergy (Verified 05/23/18 18:23) Rash Home Medications: Ambulatory Orders Azithromycin [Zithromax Z-Geovany] 250 mg PO DAILY #6 tab 11/15/18 Prednisone [Deltasone] 20 mg PO DAILY #5 tab 11/15/18 Review of Systems - Review of Systems Constitutional: States: no symptoms reported EENTM: States: no symptoms reported Respiratory: States: see HPI Cardiology: States: no symptoms reported Gastrointestinal/Abdominal: States: no symptoms reported Genitourinary: States: no symptoms reported Musculoskeletal: States: no symptoms reported Skin: States: no symptoms reported Neurological: States: no symptoms reported Endocrine: States: no symptoms reported Hematologic/Lymphatic: States: no symptoms reported Past Medical History (General) - Patient Medical History Hx Seizures: No Hx Stroke: No Hx Dementia: No Hx Asthma: Yes - seasonal allergies Hx of COPD: No Hx Cardiac Disorders: No Hx Congestive Heart Failure: No Hx Pacemaker: No Hx Hypertension: Yes Hx Thyroid Disease: No Hx Diabetes: No Hx Gastroesophageal Reflux: Yes Hx Renal Disease: No Hx Cancer: Yes - leukemia Hx of HIV: No Hx Hepatitis C: No Hx MRSA: No MRSA Source:: Wound - Vaccination History Hx Tetanus, Diphtheria Vaccination: Yes Hx Influenza Vaccination: No Hx Pneumococcal Vaccination: No - Social History Hx Tobacco Use: No Hx Chewing Tobacco Use: No Hx Alcohol Use: No Hx Substance Use: No Hx Substance Use Treatment: No Hx Depression: Yes Hx Physical Abuse: No Hx Emotional Abuse: No Hx Suspected Abuse: No - Female History Hx Last Menstrual Period: 08/14/18 Patient : No Family Medical History - Family History Mother Living Status: Hx Family Asthma: Yes - mother Hx Family Cancer: Yes - dad-prostate Hx Family;Other: Malini Gehrig's disease Father Family History: Unknown Living Status: Hx Family Cancer: Yes - Prostate Physical Exam - Physical Exam General Appearance: Alert Eye Exam: bilateral normal Ears, Nose, Throat: normal ENT inspection Neck: non-tender, full range of motion, supple Respiratory: lungs clear, normal breath sounds Cardiovascular/Chest: normal peripheral pulses, regular rate, rhythm, no edema Gastrointestinal/Abdominal: normal bowel sounds, non tender, soft Skin Exam: normal color Lymphatic: no adenopathy Progress - Progress Progress: 11/15/18 11:00 Laboratory Tests 11/15/18 11/15/18 09:56 09:56 WBC 8.9 RBC 4.61 Hgb 12.7 Hct 38.7 MCV 84.0 MCH 27.5 MCHC 32.7 L RDW 16.1 H Plt Count 358 MPV 7.4 Absolute Neuts (auto) 5.50 Absolute Lymphs (auto) 2.60 Absolute Monos (auto) 0.50 Absolute Eos (auto) 0.20 Absolute Basos (auto) 0.10 Neutrophils % 61.6 Lymphocytes % 29.4 Monocytes % 5.9 Eosinophils % 2.2 Basophils % 0.9 Sodium 138 Potassium 3.9 Chloride 108 Carbon Dioxide 22 Anion Gap 11.9 L BUN 11 Creatinine 0.44 L BUN/Creatinine Ratio 25.0 H Random Glucose 114 H Serum Osmolality 275.9 Calcium 8.9 Total Bilirubin 0.7 AST 21 ALT 24 Alkaline Phosphatase 57 Serum Total Protein 7.4 Albumin 4.0 Globulin 3.4 Albumin/Globulin Ratio 1.2 CXR unremarkable. Patient given solumedrol 125 mg IM in the E.D. Because she is high risk for pneumonia because of the asthma, she was given a Z-pack and prednisone x 5 days. Care instructions given. E.R. warnings given. Questions were elicited and answered. Patient voiced understanding and agreement with the plan. Departure - Departure Clinical Impression: Acute asthma, Upper respiratory infection Disposition: Discharge to Home or Self Care Condition: Good Departure Forms: ED Discharge - Pt. Copy, Patient Portal Self Enrollment Instructions: DI for Asthma -- Adult, Viral Upper Respiratory Infection, Adult (DC) Diet: resume usual diet Activity: increase activity as tolerated Referrals: RADHA RONQUILLO [Primary Care Provider] - 1-2 Weeks Prescriptions: Azithromycin [Zithromax Z-Geovany] 250 mg PO DAILY #6 tab Prednisone [Deltasone] 20 mg PO DAILY #5 tab Home Medications: Ambulatory Orders Azithromycin [Zithromax Z-Geovany] 250 mg PO DAILY #6 tab 11/15/18 Prednisone [Deltasone] 20 mg PO DAILY #5 tab 11/15/18
== END 2018-11-15 11:15 | disposition home or self-care (01) ==
LOC: ER 09:42
DX: J45.901 Unspecified asthma with (acute) exacerbation (principal); J06.9 Acute upper respiratory infection, unspecified; F32.9 Major depressive disorder, single episode, unspecified; I10 Essential (primary) hypertension; K21.9 Gastro-esophageal reflux disease without esophagitis; Z85.6 Personal history of leukemia; Z88.0 Allergy status to penicillin; Z79.899 Other long term (current) drug therapy
CPT/HCPCS: 71046; 80053; 85025; J2930

== ENCOUNTER 2018-12-14 16:32 | Emergency (ER) | payer SELFPAY ==
[2018-12-14] MEDS ORDERED: SODIUM CHLORIDE 0.9% (FLUSH) 10 ML SYG IV PRN (16:52)
[2018-12-14] MEDS ORDERED: IPRATROPIUM/ALBUTEROL 3 ML VIAL INH ONE (16:52)
[2018-12-14] MEDS ORDERED: methylPREDNISolone SODIUM SUC 125 MG/2 ML VIAL IM ONE (16:54)
[2018-12-14] MEDS ORDERED: KETOROLAC TROMETHAMINE INJ 30 MG/ML VIAL IM ONE (17:04)
--- NOTE | 2018-12-14 17:13 | RAD ---
EXAM DESCRIPTION: Chest,2 Views CLINICAL HISTORY: 48 years Female sob, cough COMPARISON: None. FINDINGS: The cardiomediastinal silhouette appears unremarkable. No consolidating infiltrates or pleural effusions. No pneumothorax. IMPRESSION: No acute abnormality is identified. Electronically signed by: Yue Mora MD 12/14/2018 5:10 PM [employer]
--- NOTE | 2018-12-14 17:20 | ED.PDOC ---
History of Present Illness - General Chief Complaint: Respiratory Problem Stated Complaint: Congestion, cough Time Seen by Provider: 12/14/18 16:42 Source: patient Exam Limitations: no limitations - History of Present Illness Initial Comments: PT PRESENTS TO THE ED WITH COMPLAINT OF PERSISTENT COUGH FOR THE PAST 2 MONTHS. PT REPORTS FINISHING ABX AND A ROUND OF STEROIDS ABOUT 1 MONTH AGO. PT DENIES FEVER, CHILLS, CHEST PAIN. Severity: moderate Improving Factors: immobilization Worsening Factors: movement Associated Symptoms: cough, wheezing Respiratory Risk Factors: no cause identified Allergies/Adverse Reactions: Allergies Penicillins Allergy (Verified 05/23/18 18:23) Rash Home Medications: Ambulatory Orders Levocetirizine Dihydrochloride [Xyzal Allergy 24Hr] 5 mg PO DAILY #30 tab Pantoprazole Tablet [Protonix] 40 mg PO ACBK #14 tab 12/14/18 Prednisone 50 mg PO DAILY 4 Days #4 tab 12/14/18 levoFLOXacin [Levaquin] 500 mg PO DAILY #10 tab 12/14/18 Review of Systems - Review of Systems Constitutional: Denies: chills, fever EENTM: States: nose congestion. Denies: throat pain Respiratory: States: cough, short of breath, wheezing Cardiology: Denies: chest pain, palpitations Gastrointestinal/Abdominal: Denies: abdominal pain, diarrhea, nausea, vomiting Genitourinary: Denies: dysuria, frequency Musculoskeletal: Denies: joint pain, joint swelling Skin: States: see HPI. Denies: change in color, dryness Neurological: States: headache. Denies: anxiety, depressed Endocrine: States: no symptoms reported Hematologic/Lymphatic: States: no symptoms reported Past Medical History (General) - Patient Medical History Hx Seizures: No Hx Stroke: No Hx Dementia: No Hx Asthma: Yes - Seasonal allergies and asthma Hx of COPD: No Hx Cardiac Disorders: No Hx Congestive Heart Failure: No Hx Pacemaker: No Hx Hypertension: Yes Hx Thyroid Disease: No Hx Diabetes: No Hx Gastroesophageal Reflux: Yes Hx Renal Disease: No Hx Cancer: Yes - leukemia Hx of HIV: No Hx Hepatitis C: No Hx MRSA: No MRSA Source:: Wound Surgical History: no surgical history - Vaccination History Hx Tetanus, Diphtheria Vaccination: Yes Hx Influenza Vaccination: No Hx Pneumococcal Vaccination: No - Social History Hx Tobacco Use: No Hx Chewing Tobacco Use: No Hx Alcohol Use: No Hx Substance Use: No Hx Substance Use Treatment: No Hx Depression: Yes Hx Physical Abuse: No Hx Emotional Abuse: No Hx Suspected Abuse: No - Female History Hx Last Menstrual Period: 08/14/18 Patient : No Family Medical History - Family History Mother Living Status: Hx Family Asthma: Yes - mother Hx Family Cancer: Yes - dad-prostate Hx Family;Other: Malini Gehrig's disease Father Family History: Unknown Living Status: Hx Family Cancer: Yes - Prostate Physical Exam - Physical Exam General Appearance: Alert, No apparent distress, Well Developed, Well Groomed, Well Hydrated Eyes, Ears, Nose, Throat Exam: normal ENT inspection Neck: full range of motion, supple, normal inspection Respiratory: lungs clear, normal breath sounds, no respiratory distress Cardiovascular/Chest: no murmur, tachycardia Gastrointestinal/Abdominal: non tender, soft Extremity: normal inspection Neurologic: alert, normal mood/affect, oriented x 3 Skin Exam: normal color, warm/dry Progress - Progress Progress: 12/14/18 18:03 PT REPORTS SOME IMPROVEMENT IN SYMPTOMS AFTER DUONEB. CXR FINDINGS AND AFTER CARE PLAN DISCUSSED. - EKG/XRAY/CT XRAY: chest - NO ACTIVE DISEASE PER RAD Departure - Departure Clinical Impression: Acute bronchitis, Seasonal allergies Time of Disposition: 18:05 Disposition: Discharge to Home or Self Care Condition: Good Departure Forms: ED Discharge - Pt. Copy, Patient Portal Self Enrollment Instructions: Acute Bronchitis, Adult (DC), Seasonal Allergies in Adults Diet: bland diet Referrals: RADHA RONQUILLO [Primary Care Provider] - 1-5 Days Prescriptions: Levocetirizine Dihydrochloride [Xyzal Allergy 24Hr] 5 mg PO DAILY #30 tab levoFLOXacin [Levaquin] 500 mg PO DAILY #10 tab Pantoprazole Tablet [Protonix] 40 mg PO ACBK #14 tab Prednisone 50 mg PO DAILY 4 Days #4 tab Home Medications: Ambulatory Orders Levocetirizine Dihydrochloride [Xyzal Allergy 24Hr] 5 mg PO DAILY #30 tab 12/14/18 Pantoprazole Tablet [Protonix] 40 mg PO ACBK #14 tab 12/14/18 Prednisone 50 mg PO DAILY 4 Days #4 tab 12/14/18 levoFLOXacin [Levaquin] 500 mg PO DAILY #10 tab 12/14/18
[2018-12-14 17:44] VITALS: O2SAT 96
[2018-12-14 18:14] VITALS: BP 143/84
[2018-12-14 18:15] VITALS: TEMP 98
== END 2018-12-14 18:14 | disposition home or self-care (01) ==
LOC: ER 16:32
DX: J20.9 Acute bronchitis, unspecified (principal); J30.2 Other seasonal allergic rhinitis; F32.9 Major depressive disorder, single episode, unspecified; J45.909 Unspecified asthma, uncomplicated; I10 Essential (primary) hypertension; K21.9 Gastro-esophageal reflux disease without esophagitis; Z85.6 Personal history of leukemia; Z79.899 Other long term (current) drug therapy; Z88.0 Allergy status to penicillin
CPT/HCPCS: 71046; 94640; 94760; J1885; J2930; J7620

== ENCOUNTER 2020-02-07 11:57 | Emergency (ER) | payer SELFPAY ==
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
[2020-02-07 12:30] VITALS: BP 139/60; TEMP 97.8; O2SAT 99
== END 2020-02-07 12:28 | disposition home or self-care (01) ==
LOC: ER 11:57
DX: T24.201A Burn of second degree of unspecified site of right lower limb, except ankle and foot, initial encounter (principal); Z85.6 Personal history of leukemia; I10 Essential (primary) hypertension; Z79.899 Other long term (current) drug therapy; X10.2XXA Contact with fats and cooking oils, initial encounter; Y92.9 Unspecified place or not applicable; T31.0 Burns involving less than 10% of body surface

== ENCOUNTER 2020-02-13 | Emergency (ER) | payer SELFPAY ==
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
== END 2020-02-13 14:00 | disposition home or self-care (01) ==

== ENCOUNTER 2020-03-13 18:14 | Emergency (ER) | payer SELFPAY ==
[2020-03-13] MEDS ORDERED: ONDANSETRON ODT 8 MG TAB SL ONE (18:27)
--- NOTE | 2020-03-13 18:30 | ED.PDOC ---
History of Present Illness - General Chief Complaint: Head Injury Stated Complaint: hit head on car door,nausea Time Seen by Provider: 03/13/20 18:21 Source: patient, RN notes reviewed, Vital Signs reviewed Exam Limitations: no limitations - History of Present Illness Initial Comments: Pt is a 49 yo female that presents to ED for head injury. States she was opening a car door and it bounced back and hit her in the left forehead about noon today. Denies LOC. States she has felt nasueated and "whoozy" since the incident. Denies vomting, fever, neck pain, change in vision. Is not on bblood thinners. Has not taken anything for pain at home. Declines pain medication at this time, but is agreeable to nausea med. Allergies/Adverse Reactions: Allergies Penicillins Allergy (Verified 05/23/18 18:23) Rash Home Medications: Ambulatory Orders Cephalexin Monohydrate [Keflex] 500 mg PO QID 7 Days #28 cap 02/07/20 Fluoxetine HCl 20 mg PO DAILY 02/07/20 Lisinopril 20 mg PO DAILY 02/07/20 Quetiapine Fumarate 100 mg PO BEDTIME 02/07/20 Ondansetron HCl [Zofran] 4 mg PO Q6HR PRN #15 tab 03/13/20 Review of Systems - Review of Systems Constitutional: Denies: chills, fever, weakness EENTM: Denies: nose congestion, throat pain Respiratory: Denies: cough, short of breath Cardiology: Denies: chest pain, palpitations, syncope Gastrointestinal/Abdominal: States: nausea. Denies: abdominal pain, diarrhea, vomiting Genitourinary: Denies: dysuria, frequency, hematuria Musculoskeletal: Denies: back pain, neck pain Skin: States: other - Bruising to left forehead Neurological: States: headache. Denies: tingling, weakness Endocrine: States: no symptoms reported All other Systems: Reviewed and Negative Past Medical History (General) - Patient Medical History Hx Seizures: No Hx Stroke: No Hx Dementia: No Hx Asthma: Yes - Seasonal allergies and asthma Hx of COPD: No Hx Cardiac Disorders: No Hx Congestive Heart Failure: No Hx Pacemaker: No Hx Hypertension: Yes Hx Thyroid Disease: No Hx Diabetes: No Hx Gastroesophageal Reflux: Yes Hx Renal Disease: No Hx Cancer: Yes - leukemia Hx of HIV: No Hx Hepatitis C: No Hx MRSA: No MRSA Source:: Wound - Vaccination History Hx Tetanus, Diphtheria Vaccination: Yes Hx Influenza Vaccination: No Hx Pneumococcal Vaccination: No - Social History Hx Tobacco Use: No Hx Chewing Tobacco Use: No Hx Alcohol Use: No Hx Substance Use: No Hx Substance Use Treatment: No Hx Depression: Yes Hx Physical Abuse: No Hx Emotional Abuse: No Hx Suspected Abuse: No - Female History Hx Last Menstrual Period: 08/14/18 Patient : No Family Medical History - Family History Mother Living Status: Hx Family Asthma: Yes - mother Hx Family Cancer: Yes - dad-prostate Hx Family;Other: Malini Gehrig's disease Father Family History: Unknown Living Status: Hx Family Cancer: Yes - Prostate Physical Exam - Physical Exam General Appearance: Alert, Comfortable, No apparent distress Head Injury: other - 2x2 cm area of acchymosis to left upper forehead with no laceration, abrasion of bleeding Eye Exam: bilateral normal - PERRL Neck Exam: non-tender, full range of motion, normal inspection Cardiovascular/Respiratory: regular rate, rhythm, normal breath sounds, no respiratory distress Gastrointestinal/Abdominal: non tender, soft, no pulsatile mass Back Exam: no vertebral tenderness Extremity: normal range of motion, non-tender, normal inspection, no calf tenderness Mental Status: alert, 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 Will get CT head to r/o ICH 03/13/20 19:50 CT brain reassuring. No neuro deficits on repeat exam. Discussed concussion and SRP. Feels comfortable going home and will f/u with pcp in 1-2 days for recheck. - Results/Orders Results/Orders: CT BRAIN EXAM: Head CLINICAL INDICATION: 49-year-old female status post trauma. COMPARISON: 02/13/2016. TECHNIQUE: CT brain without contrast. This exam was performed according to our departmental dose optimization program which includes use of automated exposure control, adjustment of the mA and/or kV according to patient size and/or use of iterative reconstruction technique. FINDINGS: Streak artifact limits evaluation through the skull base. The ventricles, sulci, and cisterns are within normal limits. The mijares-white matter differentiation is preserved. There is no mass effect, midline shift, intra- or extra-axial fluid collection/acute hemorrhage. The osseous structures are unremarkable. The par anasal sinuses and mastoid air cells are clear. IMPRESSION: No acute intracranial abnormalities. Departure - Departure Clinical Impression: Closed head injury Qualifiers: Encounter type: initial encounter Qualified Code(s): S09.90XA - Unspecified injury of head, initial encounter Concussion Qualifiers: Encounter type: initial encounter Loss of consciousness presence/duration: without LOC Qualified Code(s): S06.0X0A - Concussion without loss of consciousness, initial encounter Disposition: Discharge to Home or Self Care Condition: Good Departure Forms: ED Discharge - Pt. Copy, Patient Portal Self Enrollment Instructions: DI for Concussion, DI for Closed Head Injury Diet: resume usual diet Activity: increase activity as tolerated Referrals: RADHA RONQUILLO [Primary Care Provider] - 1-2 Weeks Prescriptions: Ondansetron HCl [Zofran] 4 mg PO Q6HR PRN #15 tab PRN Reason: Nausea Home Medications: Ambulatory Orders Cephalexin Monohydrate [Keflex] 500 mg PO QID 7 Days #28 cap 02/07/20 Fluoxetine HCl 20 mg PO DAILY 02/07/20 Lisinopril 20 mg PO DAILY 02/07/20 Quetiapine Fumarate 100 mg PO BEDTIME 02/07/20 Ondansetron HCl [Zofran] 4 mg PO Q6HR PRN #15 tab 03/13/20
[2020-03-13 18:51] VITALS: TEMP 97.9
--- NOTE | 2020-03-13 19:44 | CT ---
EXAM: Head CLINICAL INDICATION: 49-year-old female status post trauma. COMPARISON: 02/13/2016. TECHNIQUE: CT brain without contrast. This exam was performed according to our departmental dose optimization program which includes use of automated exposure control, adjustment of the mA and/or kV according to patient size and/or use of iterative reconstruction technique. FINDINGS: Streak artifact limits evaluation through the skull base. The ventricles, sulci, and cisterns are within normal limits. The mijares-white matter differentiation is preserved. There is no mass effect, midline shift, intra- or extra-axial fluid collection/acute hemorrhage. The osseous structures are unremarkable. The paranasal sinuses and mastoid air cells are clear. IMPRESSION: No acute intracranial abnormalities. Electronically signed by: Tania Rowland MD 03/13/2020 7:43 PM CDT
[2020-03-13 19:53] VITALS: BP 139/80; O2SAT 96
== END 2020-03-13 19:55 | disposition home or self-care (01) ==
LOC: ER 18:14
DX: S06.0X0A Concussion without loss of consciousness, initial encounter (principal); J45.909 Unspecified asthma, uncomplicated; I10 Essential (primary) hypertension; K21.9 Gastro-esophageal reflux disease without esophagitis; Z85.6 Personal history of leukemia; Z88.0 Allergy status to penicillin; Z79.899 Other long term (current) drug therapy; W22.8XXA Striking against or struck by other objects, initial encounter; Y92.9 Unspecified place or not applicable

== ENCOUNTER → 2020-04-11 | Outpatient (CLI) | payer OTHER ==
--- NOTE | 2020-04-18 13:58 | MAM ---
History: Well woman exam. Date of exam: 04/18/2020 Services provided: Bilateral full field digital screening mammography with fadia. CAD, the images were reviewed with R2 computer aided detection. FINDINGS: Glandular tissue contains scattered areas of fibroglandular densities. No prior study for comparison. Nodular asymmetry is best demonstrated on craniocaudal projection in the retroglandular right breast at approximately 8-9 o'clock. Only the ventral most aspect as demonstrated on the MLO view. Scattered glandular pattern is demonstrated on the contralateral side with no mammographically suspicious finding. IMPRESSION: Incomplete study Recommendation: Additional views of the right breast including a true lateral and exaggerated lateral view with spot trauma films. Directed ultrasound if indicated. BIRAD CATEGORY: 0 INCOMPLETE - Need additional imaging evaluation and/or prior mammograms for comparison. Exam findings and recommendations will be sent to the patient. Electronically signed by: Trinidad Jacobsen MD 04/18/2020 1:56 PM CDT Workstation: [id number]
== END ==
LOC: MAMMO 08:00
PROVIDERS: ATTEND Family Medicine
DX: Z12.31 Encounter for screening mammogram for malignant neoplasm of breast (principal)

== ENCOUNTER → 2020-05-07 | Outpatient (CLI) | payer OTHER ==
--- NOTE | 2020-05-08 09:54 | US ---
EXAM DESCRIPTION: 3D Diagnostic, Right (accession [id number]), Breast,Right (accession [id number]): Ultrasound CLINICAL HISTORY: 49 yearsFemaleABNORMAL MAMMOGRAM mass density posterior inferior right breast.. Remote family history of ovarian cancer. Menarche age 12. Childbirth age 22. Perimenopausal. No HRT Lifetime risk of developing breast cancer (Tyrer-Cuzick model)(%): 8.0. COMPARISON: Bilateral screening digital breast tomosynthesis April 11. TECHNIQUE: Right breast LM projection full-field images, digital tomosynthesis technique. Right breast 2-D digital full-field images: LM projection. CAD available for 2-D images.. Transcutaneous scanning of the right breast utilizing mijares-scale and Doppler modes. Scanning performed by the communication electronic technician and observation by Dr. Carpenter. FINDINGS: The breast parenchymal density pattern is: Scattered areas of fibroglandular density. No skin thickening or nipple retraction mostly circumscribed nodule with same density as surrounding fibroglandular tissues posterior inferior right breast abutting the pectoral muscle at 5:00 - 6:00. No microcalcifications. Ultrasound: Scanning region of interest posterior inferior right breast. Mixture of fibroglandular and fatty tissues. Circumscribed hypoechoic mass with slightly echogenic margins and echogenic hilum but not vascular. Consistent with a lymph node. Dimensions are 6.7 x 4.6 mm. Wider than tall orientation and posterior acoustic enhancement. IMPRESSION: Benign exam. BIRAD CATEGORY: 2 BENIGN FINDINGS. RECOMMENDATIONS: FOLLOW UP: Return to routine digital bilateral mammographic screening, one year interval from March 2020. Written communication explaining the IMPRESSION and follow-up, will be mailed to the patient and referring health care provider. The FINDINGS and the FOLLOW-UP plan were reviewed in person with the patient after the examination. According to the [employer], yearly mammograms are recommended starting at age 40 and continuing as long as a woman is in good health. Any breast change noted on a breast self-exam should be reported promptly to the patient's healthcare provider. Breast MRI is recommended for women with an approximately 20-25% or greater lifetime risk of breast cancer, including women with a strong family history of breast or ovarian cancer and women who have been treated for Hodgkin's disease. A negative mammographic report should not delay tissue diagnosis in patients with significant clinical history or physical findings. Extremely dense breast tissue limits the sensitivity of digital mammography. Electronically signed by: Greg Carpenter MD 05/08/2020 9:52 AM CDT
== END ==
LOC: MAMMO 07:47
PROVIDERS: ATTEND Family Medicine
DX: R92.8 Other abnormal and inconclusive findings on diagnostic imaging of breast (principal)
CPT/HCPCS: 76641; 77065; G0279

== ENCOUNTER → 2020-08-31 | Outpatient (CLI) | payer OTHER | LOC: YCFC.O 11:20 | PROVIDERS: ATTEND Family Medicine | DX: Z20.828 Contact with and (suspected) exposure to other viral communicable diseases (principal) ==